=== PATIENT | female | born 1995 | race Caucasian/White ===

== ENCOUNTER 2021-04-08 09:59 | Outpatient (CLI) | payer OTHER, SELFPAY ==
--- NOTE | ~2021-04-08 | US_ITS ---
EXAMINATION: US OB follow up DATE: 04/08/2021 11:01 INDICATION: viability assessment, second trimester TECHNIQUE: Real-time ultrasound of the pelvis was performed. The interpreting radiologist was not pre sent for the study. COMPARISON: None. FINDINGS: There is a single living fetus in transverse lie. The placenta is anterior and 6.8 cm from the internal cervical os. cardiac activity and movement are noted. heart rate is 13 6 beats per minute (bpm). The following biometric data were obtained: Biparietal diameter (BPD): 3.1 cm; head circumference (HC): 11.1 cm; abdominal circumference (AC): 8. 9 cm; femur length (FL): 1.5 cm. These measurements are concordant. Estimated weight is 109 g +/- 16 g, which correlates with the 39th percentile when 10/01/2021 is used as estimated date of delivery. As single measurements, these parameters are each equal to the following estimated gestational ages w ith ranges of +/- 2 standard deviations: BPD: 15 weeks 6 days +/- 1 weeks 1 days. HC: 15 weeks 3 days +/- 1 weeks 1 days. AC: 15 weeks 1 days +/- 1 weeks 5 days. FL: 14 weeks 3 days +/- 1 weeks 3 days. estimated gestational age based solely on measurements from this exam is 15 weeks 2 days +/- 1 weeks 0 days. IMPRESSION: 1. Single living fetus in transverse lie. 2. Estimated weight is 109 g +/- 16 g, which correlates with the 39th percentile when 10/01/2021 is used as estimated date of delivery. Reviewed, dictated and finalized at location B. IMPRESSION: 1. Single living fetus in transverse lie. 2. Estimated weight is 109 g +/- 16 g, which correlates with the 39th per centile when 10/01/2021 is used as estimated date of delivery.
== END 2021-04-08 10:00 | disposition home or self-care (01) ==
PROVIDERS: Visit Provider Student in an Organized Health Care Education/Training Program
DX: O36.80X0 Pregnancy with inconclusive fetal viability, not applicable or unspecified (principal)
CPT/HCPCS: 76816

== ENCOUNTER 2021-09-24 12:52 | Outpatient (CLI) | payer OTHER, SELFPAY ==
[2021-09-24 13:12] LABS: Hematocrit 37.6 % (37.0-47.0); Hemoglobin 12.3 g/dL (12.0-15.0); Mean Corpuscular HGB Conc 32.7 g/dl (32-36); Mean Corpuscular Hemoglobin 28.1 pg (26-34); Mean Platelet Volume 10.3 fl (7.4-10.4); Platelet Count Result 204 k/mm3 (150-375); Red Blood Count 4.37 M/mm3 (4.2-5.4); Red Cell Distribution Width 13.3 % (11.5-14.5); White Blood Count 9.7 K/mm3 (4.5-10.0)
[2021-09-26 09:00] LABS: Rapid Plasma Reagin Non-Reactive (NonReactive)
== END 2021-09-24 12:53 | disposition home or self-care (01) ==
LOC: ANHLAB 12:55
PROVIDERS: Visit Provider Student in an Organized Health Care Education/Training Program
DX: Z34.93 Encounter for supervision of normal pregnancy, unspecified, third trimester (principal); Z3A.00 Weeks of gestation of pregnancy not specified
CPT/HCPCS: 36415; 85027; 86592; 86850; 86900; 86901

== ENCOUNTER 2021-09-26 11:25 | Inpatient (IN) | payer OTHER, SELFPAY ==
--- NOTE | 2021-09-10 15:57 | PC.NURSE ---
Patient states she is a prev C/S--States she is planning to --consent signed. Patient states baby is breech at this time and has been breech for 2 weeks. Patient states she has an appointment on 09/16/21 to see if baby is still breech
[2021-09-26] VITALS (200 sets, daily range): BP systolic 87–136; BP diastolic 27–80; PULSE 59–154; RESP 16–18; TEMP 36.2–36.4; O2SAT 96–100; BMI 34.1
--- NOTE | 2021-09-26 11:25 | LDADM ---
This patient, Charmaine Peralta, was admitted to Labor/Delivery/Recovery 120 on 09/26/21 at 11:25. Plans for labor, pain management and were discussed with patient. Patient/family oriented to hospital policies and general routines including ID bracelet, bed and alarms, visiting hours, pain management, procedures, bathroom and other care routines, personal items, smoking policy, room service/diet and guest tray routines, infant security routines, and visiting hours. Patient/Family are encouraged to report perceived risks to care and to ask questions if they do not understand what they are told or what they should do. See OBIX for further documentation.
[2021-09-26] MEDS: LACTATED RINGERS 1,000 ML 125 ML IV CONT ×4 (12:12→17:47)
--- NOTE | 2021-09-26 12:51 | PM.IMHP ---
H&P: HPI History of Present Illness Date/Time: 09/26/21 12:51 Patient is a 26yo LMP 12/25/20 currently 39w2d gestation with FROILAN 10/01/21 who presents to L&D for an external cephalic version. Patient is dated by LMP consistent with US on 04/08/21 at 15w gestation. Patient doing well today. Reports occasional contractions. Denies any vaginal bleeding or leakage of fluid. Reports good movement. Patient was previously counseled about ECV vs. repeat section. She initially declined ECV and was scheduled for a repeat section, however, last week, she requested an attempt at ECV prior to section. Chief Complaint: Intrauterine at 39w2d gestation Previous section x 1 Breech presentation Review of Systems Review of Systems: All systems reviewed & are unremarkable except as noted in HPI and below Constitutional: Constitutional: Reports as per HPI, Reports no additional constitutional complaints, Denies chills, Denies fever(s), Denies headache(s) and Denies night sweats Eyes: Eyes: Reports as per HPI and Reports no additional eye complaints ENT: Reports system reviewed and no additional complaints, except as documented, Reports as per HPI, Reports Normal hearing present and Denies headache(s) Cardiovascular: Cardiovascular: Reports as per HPI, Reports no additional cardiovascular complaints, Denies chest pain and Denies dyspnea Respiratory: Respiratory: Reports as per HPI, Reports no additional respiratory complaints, Denies cough and Denies dyspnea Gastrointestinal: Gastrointestinal: Reports as per HPI, Reports no additional gastrointestinal complaints, Denies abdominal pain, Denies change in bowel habits, Denies change in stool character, Denies nausea and Denies vomiting Genitourinary: Genitourinary: Reports no additional female genitourinary complaints, Reports as per HPI, Denies abnormal vaginal bleeding, Denies genital lesions, Denies hot flashes, Denies dyspareunia, Denies pelvic pain, Denies sexual dysfunction, Denies urinary incontinence, Denies vaginal discharge, Denies vaginal dryness and Denies vaginal odor Musculoskeletal: Musculoskeletal: Reports no additional musculoskeletal complaints and Reports as per HPI Integumentary/Breasts: Skin/Breast: Reports system reviewed and no additional complaints, except as docu, Reports as per HPI, Denies breast pain and Denies nipple discharge Neurologic: Reports system reviewed and no additional complaints, except as documented, Reports as per HPI, Reports Normal hearing present and Denies headache(s) Psychiatric: Psychiatric: Reports no additional psychiatric complaints, Reports as per HPI, Denies anxiety and Denies depression Endocrine: Endocrine: Reports no additional endocrine complaints and Reports as per HPI Hematologic/Lymphatic: Hematologic/Lymphatic: Reports no additional hematologic/lymphatic complaints and Reports as per HPI Allergic/Immunologic: Allergic/Immunologic: Reports no additional allergic/immunologic complaints and Reports as per HPI PMFSH Past Medical History Medical History History of 2017 Surgical History Surgical History History of section 2019 [place] teeth removed Family History Family History Father Malignant neoplasm of prostate Colon cancer Grandparent Hypertension Social History Social History Smoking status: Never smoker Alcohol intake: never Substance use: never Spiritual care concerns: No Meds Home Medications and Allergies Home Medications Medication Instructions Recorded Confirmed Type prenat.vits,milton,itp-uxze-jfimj 1 tablet PO DAILY 03/22/21 09/26/21 History Allergies Allergy/AdvReac Type Severity Reaction Status Date / Time No Known Allergies
[2021-09-26] MEDS: TERBUTALINE SULFATE 1 MG/ML VIAL 0.25 MG SUB-Q (12:56)
--- NOTE | 2021-09-26 13:04 | P.PNAN_ITS ---
Anes - Initial Pre Proc Eval Procedure: Operation Date: 09/26/21 13:30 Proposed Procedures p Repeat Section - Robyn Mohamud MD Date/Time: 09/26/21 13:04 Surgeon: Robyn Mohamud MD Pre Op Diagnosis: Delivery of Patient Data Age: 26 Gender: F Height: 1.68 m Weight: 96 kg Last Vital Signs Pulse 99 09/26/21 13:04 BP 112/74 09/26/21 13:04 Pulse Ox 99 09/26/21 13:01 Allergies Allergy/AdvReac Type Severity Reaction Status Date / Time No Known Allergies Allergy Verified 09/22/21 10:21 Home Medications Medication Instructions Recorded Confirmed Type prenat.vits,milton,fqz-ivif-bjjdx 1 tablet PO DAILY 03/22/21 09/26/21 History Patient hx anesthesia problems: none Family hx anesthesia problems: none Results Review: All pre-operative results and documents have been reviewed as part of the pre-operative evaluation. FORMERLY [facility], [facility] Past Medical History Medical History History of 2017 Surgical History Surgical History History of section 2019 [place] teeth removed Family History Family History Father Malignant neoplasm of prostate Colon cancer Grandparent Hypertension Social History Social History Smoking status: Never smoker Alcohol intake: never Substance use: never Spiritual care concerns: No Anes - Eval Final PreProcedure Day of Procedure 09/26/21 13:04 Patient weight: obese Heart: regular rate and rhythm Lungs: clear to auscultation and normal air movement Airway: Mallampati scale class II Neurological: alert and oriented Last oral intake: >/= 8 hours ASA classification: II Emergent: no Anesthetic plan: proceed Anesthesia type and monitoring: regional epidural and standard monitoring Other findings: Attempt external version, possible C/S to follow if version fails. Results Review: All pre-operative results and documents have been reviewed as part of the pre-operative evaluation. Informed Consent: The patient's anesthetic plan and its attendant risks and benefits were discussed with the patient/family/POA. Questions were solicited and answers provided to the satisfaction of the patient/family/POA.
[2021-09-26] MEDS: ONDANSETRON INJ 4 MG/2 ML VIAL IV PUSH (13:08)
--- NOTE | 2021-09-26 13:16 | WPDHPUPDATE1 ---
History and Physical Update Update Date/Time: 09/26/21 13:16 History and Physical has been reviewed, including an updated exam of the patient. There are NO changes in the patient's condition. Risks, benefits, and alternatives have been discussed and questions answered. Patient agrees to proceed with procedure.
--- NOTE | 2021-09-26 13:44 | PM.OP ---
Procedure Note - Brief Procedure Note - Brief Date of procedure: 09/26/21 Pre-op diagnosis: Delivery of Intrauterine at 39w2d gestation Breech presentation Previous C/S x 1 Post-op diagnosis: Same Procedure performed: External cephalic version Description of procedure: 26yo currently 39w2d gestation presented for attempted external cephalic version. FHR tracing reactive prior to procedure. Limited bedside U/S performed confirming right sacrolateral breech presentation. IV access established. An epidural was placed by anesthesia. Terbutaline x 1 dose administered. External cephalic version performed with steady pressure keeping head flexed in a backwards roll under ultrasound guidance. Fetus successfully rotated into cephalic presentation. Anesthesia: epidural Surgeon: Robyn Mohamud MD Estimated blood loss (mL): 0 Urine output (mL): 0 Drains: No Packing: No Complications: No immediate complications Condition: Stable Disposition: Floor
--- NOTE | 2021-09-26 13:48 | P.PNOB_ITS ---
OB - PN: Subj Subjective Date/time seen: 09/26/21 13:48 Able to successfully reposition fetus into cephalic presentation. Plan is to admit patient for induction of labor. She will be transferred to a labor room. Will begin IOL with pitocin and perform AROM as soon as possible. Continuous EFM and toco. OB - PN A/P Time Spent With Patient Time: Total time spent is greater than 50% in coordination of care (as doc umented) at patient's floor/unit and/or counseling patient:
[2021-09-26] MEDS: ePHEDrine sulfate INJ 50 MG/ML AMPUL IV PUSH (13:54)
--- NOTE | 2021-09-26 14:03 | PC.NURSE ---
Orders received from Dr. Mohamud for pitocin orders. Labor orders received. Call Dr. Mohamud when pt is rupturable.
[2021-09-26] MEDS: OXYTOCIN 30 UNITS/NS 500 ML 30 UNITS/500 ML BAG IV CONT (14:48)
[2021-09-27] VITALS (367 sets, daily range): BP systolic 93–137; BP diastolic 45–98; PULSE 51–121; RESP 16–18; TEMP 36.2–37.1; O2SAT 93–100
--- NOTE | 2021-09-27 06:18 | PM.OBPNLAB ---
Pain Control Date/time seen: 09/27/21 06:18 Patient doing well. s/p 12 hr course of pitocin. SVE 1.5/thick/high. Pitocin d/c'd. Patient rested for a few hours. SVE unchanged. [place] bulb catheter placed and inflated with 40cc saline. Placed on traction. Will restart pitocin. Continuous EFM and toco.
[2021-09-27] MEDS: LACTATED RINGERS 1,000 ML 125 ML IV CONT ×2 (06:24→19:40)
[2021-09-27] MEDS: fentaNYL CITRATE INJ (*CRX) 100 MCG/2 ML VIAL 50 MCG IV PUSH ×2 (08:07→09:27)
--- NOTE | 2021-09-27 12:17 | PM.OBPNLAB ---
Pain Control Date/time seen: 09/27/21 12:17 Patient doing well. [place] bulb dislodged. SVE 4-5/50/-2. AROM performed, clear fluid noted. IUPC placed. EFM 150/mod/+/occ late (recovered). [place] shows contractions q2-3 mins. Continue pitocin and continuous EFM and toco.
[2021-09-27] MEDS: ONDANSETRON INJ 4 MG/2 ML VIAL IV PUSH (12:18)
--- NOTE | 2021-09-27 21:35 | PM.OBPNLAB ---
Pain Control Date/time seen: 09/27/21 21:35 Notified by RN of decelerations on EFM. Throughout afternoon and evening, pitocin has been stopped and restarted due to variable and late decelerations. Amnioinfusion attempted. Patient repositioned. IV fluid bolus and O2 administered. Adequate recovery. However, despite multiple attempts to increase pitocin afterwards to achieve adequate MVUs, persistent decelerations noted. SVE has been 5cm dilated for several hours. Situation discussed with patient. Discussed inability to titrate pitocin without decelerations. Recommendation made to proceed with section for nonreassuring heart tracing. Patient implied an understanding and agrees with plan. All questions and concerns addressed. Anesthesia and OR staff aware.
[2021-09-27] MEDS: ceFAZolin 2 GM/D5W 50 ML 2 GM/50 ML BAG IVPB (21:43)
--- NOTE | 2021-09-27 23:12 | W.PM.PROC2 ---
Procedure Note - Detailed Date of Procedure 09/27/21 Pre-op Diagnosis Intrauterine at 39w3d gestation Previous section x 1 Trial of labor after Nonreassuring heart tracing Post-op Diagnosis Same Procedure Performed Repeat low transverse section via Pfannenstiel Vacuum assisted delivery of head Surgeon Robyn Mohamud MD [employer]electric [employer] Operator Belén Vera Anesthesia Epidural Findings Live male in cephalic presentation, apgars 6/9, weighing 8 lbs. 2 oz, clear amniotic fluid, normal appearing uterus, ovaries, and fallopian tubes bilaterally Description of Procedure The patient was taken to the operating room, where she was transferred to the operating room table. The patient was placed in dorsal supine position with a leftward tilt. She was prepped and draped in the usual sterile fashion. Epidural anesthesia was tested and found to be adequate. A Pfannenstiel skin incision was made with a scalpel and carried through to underlying layer of fascia with the Bovie. The fascia was incised in the midline and the incision was extended laterally with the use of forceps and Almazan scissors. The inferior aspect of the fascial incision was grasped with Daryn clamps, elevated, and the underlying rectus muscle were dissected off with Almazan scissors. Attention was then turned to the superior aspect of the fascial incision, which in a similar manner, was grasped with Daryn clamps, elevated, and the underlying rectus muscles were also dissected off with Almazan scissors. The rectus muscles were in the midline and the peritoneal cavity was entered bluntly. This incision was extended superiorly and inferiorly with good visualization of the bladder and care was taken to avoid blood vessels. A bladder blade was inserted. The vesicouterine peritoneum was identified and incised sharply with Metzenbaum scissors. This incision was extended laterally with Metzenbaum scissors and a bladder flap was created digitally. The bladder blade was replaced. A low-transverse uterine incision was made with a scalpel. This incision was extended laterally with bandage scissors. Amniotomy was performed. Clear amniotic fluid was noted. The 's head was grasped and gently guided to the level of the uterine incision. An attempt to deliver the 's head was made, however, was unable to deliver through incision. The peritoneum and fascial incision were extended on the right side and another attempt to deliver head was made, however, unsuccessful. Similarly, the peritoneum and fascial incision on the left side was also extended to increase space. head still unable to be delivered. A kiwi vacuum was opened on the field and applied to head. The pressure of vacuum was increased to green level and effort was made to deliver head with fundal pressure. Pop off occurred. A second application of vacuum was performed and a second pop off occurred. Both the left and right rectus muscles were transected approx. 1 cm each to further increase space. Afterwards, the head was grasped again and delivered without difficulty followed by the neck, shoulders, and rest of body with gentle fundal pressure. A nuchal cord x 1 was noted and reduced. The infant's nose and mouth were suctioned bulb suction. The was feebly crying. The cord was clamped and cut and the infant was handed off to waiting nursing staff. A segment of cord was collected for cord gases. Cord blood was also collected. The placenta was then delivered manually with gentle uterine massage. Uterus was exteriorized and cleared of all clots and debris. The uterine incision was reapproximated with 0 Vicryl in a running, locked fashion. A second imbricating layer using 0 Monocryl performed. An area of bleeding was noted in the midline of the incision. A few figure of eight sutures with 0 Monocryl were placed. Excellent hemostasis was noted. On inspection, the uterus, ovaries, and fallopian tubes appeared to be
--- NOTE | 2021-09-27 23:34 | PM.OBPRVD ---
OB - Delivery Note Procedure Delivery date: 09/27/21 Procedure: Procedures Operation Date: 09/26/21 13:30 <No data on this case meets the specified criteria> Operation Date: 09/27/21 22:00 <No data on this case meets the specified criteria> Events: Elective Induction of Labor and Previous Delivery Intrapartal Events: Non-Reassuring Status Induction method: Per Pitocin Protocol Delivery augmentation: Rupture of Membranes Delivery monitor: External FHT, External Uterine and Internal FHT Route of delivery: (with vacuum delivery of head) Prior to decision for section, ACOG/SMFM labor guidelines were considered and discussed with the patient and staff. Decision made to proceed with the section.: Yes Quantitative Blood Loss (ml): 660 Anesthesia type: Epidural Disposition: PACU Complications: No immediate complications Baby Date of : 09/27/21 Time of : 22:11 Weeks of gestation at delivery: 39 (39.3) Infant gender: Male Weight (pounds): 8 Weight (ounces): 2 presentation: vertex position: Right Occiput Anterior (however, asynclitic) Placenta delivery description: Manual Removal Cord Vessel Description: 3 Vessels and Nuchal Cord (x1) score one minute: 6 score five minutes: 9 AMG Delivery Billing Delivery Delivery: Delivery Charge
[2021-09-28] VITALS (31 sets, daily range): BP systolic 108–129; BP diastolic 49–85; PULSE 52–76; RESP 16–18; TEMP 36.2–36.7; O2SAT 94–100
[2021-09-28] MEDS: OXYTOCIN 30 UNITS/NS 500 ML 30 UNITS/500 ML BAG 125 UNITS IV CONT (00:22)
[2021-09-28] MEDS: DEXTROSE 5%/0.45% SOD CHL 1,000 ML 125 ML IV CONT (04:36)
[2021-09-28 04:47] LABS: Basophils Percent Auto 0.3 % (0.2-1.2); Hematocrit 31.7 % (37.0-47.0); Hemoglobin 10.4 g/dL (12.0-15.0); Immature Granulocyte Absolute 0.03 K/mm3 (0.00-0.031); Immature Granulocyte Percent A 0.3 % (0-0.5); Lymphocytes Absolute Auto 1.43 K/mm3 (0.9-3.2); Lymphocytes Percent Auto 13.5 % (18.3-44.2); Mean Corpuscular HGB Conc 32.8 g/dl (32-36); Mean Corpuscular Hemoglobin 28.8 pg (26-34); Mean Corpuscular Volume 87.8 fl (80-100); Mean Platelet Volume 10.4 fl (7.4-10.4); Monocytes Absolute Auto 0.7 K/mm3 (0.1-0.6); Monocytes Percent Auto 6.1 % (2.6-8.5); Neutrophils Absolute Auto 8.5 K/mm3 (1.3-6.7); Neutrophils Percent Auto 79.8 % (45.5-73.1); Platelet Count Result 163 k/mm3 (150-375); Red Blood Count 3.61 M/mm3 (4.2-5.4); Red Cell Distribution Width 13.3 % (11.5-14.5); White Blood Count 10.6 K/mm3 (4.5-10.0)
[2021-09-28] MEDS: MULTIVIT/MIN/PREN/FOL AC/IRON TABLET 1 TAB PO (08:57)
[2021-09-28] MEDS: DOCUSATE SODIUM 100 MG CAPSULE PO ×2 (08:57→16:09)
[2021-09-28] MEDS: ACETAMINOPHEN 325 MG TABLET 650 MG PO (08:58)
--- NOTE | 2021-09-28 09:14 | P.PNOB_ITS ---
OB - PN: Subj Subjective Date/time seen: 09/28/21 09:14 Patient doing well. Pain reasonably controlled with medication. Denies any headache, chest pain, SOB, N/V. Scant lochia. No ambulation yet. [place] in place. No flatus. OB - PN: Obj Data Labs CBC & Chem 7: 09/28/21 04:18 Labs: Laboratory Results - last 24 hr 09/28/21 04:18 WBC 10.6 H RBC 3.61 L Hgb 10.4 L Hct 31.7 L MCV 87.8 MCH 28.8 MCHC 32.8 RDW 13.3 Plt Count 163 MPV 10.4 Immature Gran % (Auto) 0.3 Neut % (Auto) 79.8 H Lymph % (Auto) 13.5 L [place] % (Auto) 6.1 Eos % (Auto) 0.0 Baso % (Auto) 0.3 Lymph # (Auto) 1.43 [place] # (Auto) 0.7 H Eos # (Auto) 0.0 Baso # (Auto) 0.0 Abs Immat Gran (auto) 0.03 Absolute Neuts (auto) 8.5 H Absolute Nucleated RBC 0.0 Nucleated RBC % 0.0 OB - PN A/P Assessment and Plan (1) Delivery by section of full-term infant: Code(s): O82 - Encounter for delivery without indication Status: Acute Assessment and Plan: POD#1 doing well continue routine postoperative care pain management PRN encourage ambulation and use of IS Time Spent With Patient Time: Total time spent is greater than 50% in coordination of care (as documented) at patient's floor/unit and/or counseling patient: Exam Const: General: cooperative, healthy appearing, comfortable and no acute distress GI: Inspection: non-distended GI Palp: Yes Soft to palpation and Yes Tenderness to palpation present (GI) (appropriately tender) Other: inc cover ed with bandage, which is c/d/i Extrem: Right lower extremity: no edema Left lower extremity: no edema
--- NOTE | 2021-09-28 10:52 | PC.NURSE ---
30 [phone] [id number] Introductions were made, then consulted with patient to assess needs related to . Mother led the conversation with her experience feeding her infant so far and states she breastfed well for 10 min with no pain. Mother works well with her infant. Encouraged understanding of the benefits of skin to skin (unwrapping and placing vertically on her chest), responsive feeding and how to watch for early feeding signs, frequency of feeding on demand about every 8-12 times in 24 hours (every 2-3 hours), milk production, duration of feeding, signs of adequate intake/output and how to record on the feeding sheet. Reviewed positioning and ear, shoulder, hip alignment, supporting the breast, asymmetrical latch (off-center), and leading with the chin with a big open side gape. Nipple care reviewed with optimal latch and good positioning. Mother mentions baby may have latched shallow with the last feeding. Mother is encouraged to pump if she is unable to have a successful breastfeed and she has pumped a great amount of colostrum and stored it in the refrigerator. Resources used to facilitate learning were used with the visual handouts/mom and baby guide. Mother voiced understanding of responsive feedings, stimulating with skin to skin, hand expressed colostrum, touch, talking to to encourage if it has been 2 -3 hours since the start of the last , to call if does not latch or there is discomfort with . Reported to the primary RN.
--- NOTE | 2021-09-28 10:54 | WPDANLDPN2 ---
Anes-Prog Note L&D Date/Time: 09/28/21 10:54 Comfortable throughout: labor and section Neuraxial method: epidural Epidural/Spinal procedure site: clean & non-tender Neuro status: Neuro function grossly intact. Cardiovascular status: normal Respiratory status: normal Airway patency: baseline Mental status: baseline Post-Op hydration status: normal Vital Signs: Last Vital Signs Temp 98.1 F 09/28/21 08:45 Pulse 68 09/28/21 08:45 Resp 16 09/28/21 08:45 BP 118/64 09/28/21 08:45 Pulse Ox 97 09/28/21 08:45 Pain score (VAS): 0/10 I/O: Intake & Output 09/27/21 09/28/21 09/28/21 23:59 07:59 15:59 Intake Total 1450 500 600 Output Total 524 288 4234 Balance 640 125 -400 Post-procedural complaints: none Patient feedback: Patient satisfied with anesthetic care.
--- NOTE | 2021-09-28 10:55 | WPDANLDNPN2 ---
Anes-Prog Note L&D-Neuraxial Date/Time: 09/28/21 10:55 Neuraxial medications: epidural PF morphine Opiod-related complaints: none Patient feedback: Patient satisfied with post-operative pain management.
[2021-09-28] MEDS: HYDROcodone/acetaminophen (*CRX) 5-325 MG TABLET 1 TAB PO ×3 (12:01→19:52)
[2021-09-28] MEDS: IBUPROFEN 600 MG TABLET PO ×2 (12:02→19:52)
[2021-09-29] MEDS: IBUPROFEN 600 MG TABLET PO ×2 (03:17→08:58)
[2021-09-29] MEDS: SIMETHICONE 80 MG TAB.CHEW PO ×2 (03:18→08:58)
[2021-09-29] MEDS: HYDROcodone/acetaminophen (*CRX) 5-325 MG TABLET 1 TAB PO ×3 (03:18→13:21)
[2021-09-29 07:30] VITALS: BP 114/68; PULSE 66; RESP 18; TEMP 36.6; O2SAT 100
[2021-09-29] MEDS: DOCUSATE SODIUM 100 MG CAPSULE PO (08:57)
[2021-09-29] MEDS: MULTIVIT/MIN/PREN/FOL AC/IRON TABLET 1 TAB PO (08:58)
--- NOTE | 2021-09-29 09:49 | P.PNOB_ITS ---
OB - PN: Subj Subjective Date/time seen: 09/29/21 09:49 Patient doing well. Pain reasonably controlled with medication. Denies headache, chest pain, shortness of breath, nausea, or vomiting. Tolerating p.o. diet. Ambulating without difficulty. Voiding well. Passing flatus. Minimal lochia. OB - PN: Obj Data Labs CBC & Chem 7: 09/28/21 04:18 OB - PN A/P Assessment and Plan (1) Delivery by section of full-term : Code(s): O82 - Encounter for delivery without indication Status: Acute Assessment and Plan: POD#2 doing well continue routine postoperative care encourage ambulation and use of IS pt requesting dc home today emergency precautions reviewed f/u in office in 2 weeks for postoperative visit Time Spent With Patient Time: Total time spent is greater than 50% in coordination of care (as docum ented) at patient's floor/unit and/or counseling patient: Exam Const: General: cooperative, healthy appearing, comfortable and no acute distress GI: Inspection: non-distended GI Palp: Yes Soft to palpation and Yes Tenderness to palpation present (GI) (appropriately) Other: inc c/d/i Extrem: Right lower extremity: no edema Left lower extremity: no edema Other: no calf tenderness Psych: Appearance: grossly normal Mental Status: mental status grossly normal
--- NOTE | 2021-09-29 09:53 | P.DS_ITS ---
DS: Admitting Diagnosis Discharge Date 09/29/21 Admitting Diagnosis Intrauterine at 39w2d gestation Previous section x 1 Breech presentation OB - DS: Summary OB Procedures : External version OB Procedures Intrapartum: OB Procedures: : None Peripartum Data Procedures: Procedures Operation Date: 09/26/21 13:30 <No data on this case meets the specified criteria> Operation Date: 09/27/21 22:00 Actual Procedure Side Surgeon p Section Robyn Mohamud MD Time Spent with Patient Time attestation: Total time spent providing and/or coordinating discharge services: Discharge Plan Discharge Attending physician on discharge: Robyn Mohamud Discharging Clinician: Robyn Mohamud Anticipated Discharge Date/Time: 09/29/21 09:53 Patient Disposition: Home, Self-Care Activity: as tolerated and pelvic rest Diet: regular Discharge Instructions: Call office ([phone]) to schedule the following appointments: 1. Postoperative/wound check in 2 weeks. 2. visit in 4-6 weeks. You may take Ibuprofen 600mg every 6 hours as needed for pain. I have sent a prescription for a stronger pain medication, [place], to your pharmacy. You may take this as prescribed for breakthrough pain (pain that is not controlled with Ibuprofen). No driving for at least two weeks. You also may not drive while taking narc otics. Pain medication may make you constipated. It may be helpful to take an uoji-bxv-ameryye stool softener, such as Colace and/or Senokot, along with the pain medication to help lessen constipation. Call office or go to ED for pain not controlled with medication, headache, chest pain, shortness of breath, fever, chills, persistent nausea or vomiting, severe abdominal pain, heavy vaginal bleeding >2 pads/hour, foul vaginal discharge or odor, any redness near incision, severe pain, pus or drainage from incision site, or problems with your breasts. Patient Instructions: Antibiotic Form Stand Alone Forms: General Discharge Information Follow-up/Referrals: Robyn Mohamud MD [Physician] - Discharge Medications: New hydrocodone-acetaminophen 5-325 mg Tablet 1 - 2 tablet PO Q4-6H PRN (Reason: Moderate Pain (4-6)) Qty: 30 RF: 0 Continued prenat.vits,milton,khi-xsfu-xlyzl Tablet 1 tablet PO DAILY RF: 0 Date of admission: 09/26/21 11:25 Primary Care Provider: PHYSICIAN NOT ON STAFF,NONSTAFF Admitting Provider: Robyn Mohamud Attending physician on admission: Robyn Mohamud Condition: Stable
[2021-09-30 09:50] VITALS: BP 122/72; PULSE 67; RESP 16; TEMP 37; O2SAT 100
== END 2021-09-29 13:25 | disposition home or self-care (01) | DRG 788 ==
LOC: ANHLDR 09-27 23:21 → ANHOB2 09-28 01:43
PROVIDERS: Admitting Provider Student in an Organized Health Care Education/Training Program; Visit Provider Student in an Organized Health Care Education/Training Program
PROC: 3E0E77Z Introduction of Electrolytic and Water Balance Substance into Products of Conception, Via Natural or Artificial Opening (ICD-10-PCS; CPT 59514; principal; 2021-09-27 22:00)
DX: O32.1XX0 Maternal care for breech presentation, not applicable or unspecified (principal); Z37.0 Single live birth; Z3A.39 39 weeks gestation of pregnancy; O34.211 Maternal care for low transverse scar from previous cesarean delivery; O36.8330 Maternal care for abnormalities of the fetal heart rate or rhythm, third trimester, not applicable or unspecified; O69.81X0 Labor and delivery complicated by cord around neck, without compression, not applicable or unspecified
CPT/HCPCS: 36415; 85025; 85027; 86592; 86850; 86900; 86901; A9270; J0131; J0690; J2274; J2370; J2405; J2590; J2704; J3010; J3105; J7120

== ENCOUNTER 2023-05-16 10:27 | Emergency (ER) | payer OTHER, SELFPAY ==
--- NOTE | ~2023-05-16 | XR_ITS ---
EXAMINATION:XR_[id number] DATE: 05/16/2023 12:13 INDICATION: Neck pain TECHNIQUE: AP, lateral, and odontoid views of the cervical spine are provided. COMPARISON: None FINDINGS: There is reversal of the normal cervical lordosis. Alignment is normal. The odontoid proces s is intact. No fracture is identified. Vertebral body heights and disk spaces are normal. Prevertebr al soft tissues are normal. IMPRESSION: 1. No acute osseous abnormality. Reviewed, dictated and finalized at location B. UCTION UNDERWRITER
[2023-05-16 10:32] VITALS: BP 117/74; PULSE 64; RESP 18; TEMP 36.2; O2SAT 100
--- NOTE | 2023-05-16 11:34 | ED.NECK ---
HPI - Neck Pain/Injury General Chief Complaint: Neck Pain/Injury Stated Complaint: NECK STRAINED Time Seen by Provider: 05/16/23 10:49 Source: patient Mode of arrival: ambulatory Limitations: no limitations History of Present Illness HPI Narrative: This is a 27-year-old female that presents to the emergency department for left-sided neck pain. Ongoing since yesterday. Reports she was doing a backward roll and felt like she strained her neck. Pain is worse with movement and relieved with rest. She has not taken any pain medication yet today. Denies numbness or weakness. Related Data Home Medications Medication Instructions Recorded Confirmed prenat.vits,milton,mkc-zaun-wteis 1 tablet PO DAILY 03/22/21 09/26/21 Allergies Allergy/AdvReac Type Severity Reaction Status Date / Time No Known Allergies Allergy Verified 05/16/23 10:46 Review of Systems Review of Systems: CONSTITUTIONAL: Denies fever, MUSCULOSKELETAL: Reports myalgia. NEUROLOGIC: Denies numbness, or weakness. All systems reviewed & are unremarkable except as noted in HPI and below PMFSH Past Medical History Medical History History of 2017 Surgical History Surgical History History of section 2019 [place] teeth removed Family History Family History Father Malignant neoplasm of prostate Colon cancer Grandparent Hypertension Social History Social History Smoking status: Never smoker Alcohol intake: never Substance use: never Spiritual care concerns: No Exam Narrative: GENERAL: Well-appearing, well-nourished, and in no acute distress. HEAD: Normocephalic, atraumatic. EYES: EOMI. NECK: Supple. No adenopathy or masses. Tender to palpation of the trapezius musculature on the left side CHEST: Clear to auscultation. No respiratory distress. No wheezes rales or rhonchi HEART: Regular rate and rhythm. No murmur heard. Normal peripheral pulses. EXTREMITIES: Normal range of motion. No edema. Strength equal in bilateral upper extremities (5/5) SKIN: Warm, dry, no rash. NEURO: No focal deficits. Alert and oriented x3. PSYCH: Normal mood and affect Course Course Emergency Course: patient updated on workup and agrees with plan of care Vital Signs Vital signs: Vital Signs Temperature 97.1 F L 05/16/23 10:32 Pulse Rate 64 05/16/23 10:32 Respiratory Rate 18 05/16/23 10:32 Blood Pressure 117/74 05/16/23 10:32 Pulse Oximetry 100 05/16/23 10:32 Temperature 97.1 F L 05/16/23 10:32 Pulse Rate 64 05/16/23 10:32 Respiratory Rate 18 05/16/23 10:32 Blood Pressure 117/74 05/16/23 10:32 Pulse Oximetry 100 05/16/23 10:32 MDM - Neck Pain/Injury MDM Narrative Medical decision making narrative: Patient presents to the emergency department for left-sided neck pain after an injury yesterday. Patient is neurologically intact. No midline spinal tenderness. Cervical spine x-rays without acute osseous abnormalities. Does show some evidence for muscle spasm. Patient instructed on further care muscle strain. She is to follow up with her primary provider. She was given warnings to return to the ER Differential Diagnosis Differential diagnosis: Likely disc disorder of cervical region, whiplash injury to neck, cervical radiculopathy and strain of neck muscle Imaging Data Radiologist's impression: ITS Impressions Cervical Spine X-Ray 05/16/23 12:17 IMPRESSION: 1. No acute osseous abnormality. Critical Care Time Critical Care Time Critical Care Time: No Discharge Plan Discharge Clinical Impression: Neck pain Patient Disposition: Home, Self-Care Condition: Improved Instructions: Cervical Strain (ED) Additional Instru
[2023-05-16] MEDS: ACETAMINOPHEN 500 MG TABLET 1000 MG PO (11:57)
[2023-05-16] MEDS: diazePAM INJ (*CRX) 10 MG/2 ML SYRINGE 5 MG IM (11:57)
[2023-05-16] MEDS: predniSONE 20 MG TABLET 40 MG PO (11:57)
[2023-05-16 13:10] VITALS: BP 116/74; PULSE 68; RESP 15; O2SAT 100
== END 2023-05-16 13:11 | disposition home or self-care (01) ==
PROVIDERS: Emergency Provider Physician Assistant
DX: M54.2 Cervicalgia (principal)
CPT/HCPCS: 72040; 96372; 99283; A9270; J3360; J7512

== ENCOUNTER 2024-06-02 10:55 | Emergency (ER) | payer OTHER, SELFPAY ==
--- NOTE | ~2024-06-02 | XR_ITS ---
CHEST RADIOGRAPH, PA AND LATERAL CLINICAL HISTORY: cough x1+wks. SOB w exertion . COMPARISON: None available TECHNIQUE: PA and lateral views of the chest. FINDINGS The cardiomediastinal silhouette is unremarkable. The lungs are clear. Visualized osseous structures and soft tissues are unremarkable. IMPRESSION: No focal infiltrate or effusion. Reviewed, dictated and finalized at location A. S PROFESSIONAL
[2024-06-02 11:21] VITALS: BP 105/64; PULSE 59; RESP 16; TEMP 36.6; O2SAT 100
--- NOTE | 2024-06-02 11:51 | ED.URI ---
HPI - URI/Sore Throat General Chief Complaint: Upper Respiratory Infection Stated Complaint: Chest Congestion Time Seen by Provider: 06/02/24 11:46 Source: patient and RN notes reviewed Mode of arrival: ambulatory Limitations: no limitations History of Present Illness HPI Narrative: Patient presents today complaining of a 1+ week history of productive cough that is worse at night, fatigue, headache, shortness of breath with exertion. Denies nasal congestion, fever, sore throat. She has tried some thoi-hfe-lassurm medication at home without relief. History of exercise-induced asthma many years ago, but is not currently taking any control medication. She is a nonsmoker. Related Data Allergies Allergy/AdvReac Type Severity Reaction Status Date / Time No Known Allergies Allergy Verified 06/02/24 11:18 Review of Systems Review of Systems: CONSTITUTIONAL: Denies body aches, fever, chills, or sweats.+ fatigue EYES: Denies visual changes, redness, or discharge. ENT: Denies rhinorrhea, congestion, sore throat, or otalgia. CARDIOVASCULAR: Denies chest pain, palpitations, or edema. RESPIRATORY: + cough, shortness of breath with exertion GASTROINTESTINAL: Denies abdominal pain, nausea, vomiting, or diarrhea. GENITOURINARY: Denies dysuria or hematuria. SKIN: Denies rash, itching, or wounds. MUSCULOSKELETAL: Denies back pain, joint pain, or myalgia. NEUROLOGIC: Denies numbness, tingling, or weakness.+ headache PSYCH: Denies depression or anxiety. [facility] Past Medical History Medical History History of 2017 Surgical History Surgical History [place] teeth removed History of section 2019 Family History Family History Father Malignant neoplasm of prostate Colon cancer Grandparent Hypertension Social History Social History Smoking status: Never smoker Alcohol intake: never Substance use: never Spiritual care concerns: No Comments At time of signature, I have reviewed and agree with nursing past medical, surgical, social and family history unless otherwise noted. Please see nursing chart for further information. There is no relevant family history pertinent to the presenting complaint Exam Narrative: GENERAL: Mildly ill-appearing, well-nourished, and in no acute distress. HEAD: Normocephalic, atraumatic. EYES: EOMI. No redness or drainage. Conjunctivae normal. ENT: Mucous membranes pink and moist. Nares clear. No rhinorrhea. TMs normal bilaterally. Throat normal. Uvula midline. NECK: Normal AROM. Supple. No lymphadenopathy. CHEST: No respiratory distress. Mild Crackles in the right lower lobe, otherwise clear HEART: Regular rate and rhythm. No murmur appreciated. EXTREMITIES: Normal range of motion. No edema. SKIN: Warm, dry, no rash. Capillary refill normal. Normal skin turgor. NEURO: No focal deficits. Alert and oriented x3. Gait steady. PSYCH: Normal affect. No signs of depression or anxiety. Course Course Emergency Course: 1302- Patient was discharged home as I was notified by instrumentation and control technician that there was some malfunction with reading xrays. Patient has been waiting for the xray to be read for some time and there was not an ETA for this fix. I will call her later when it is read and discuss diagnosis and any prescriptions that are necessary. She agrees with plan. 1324- Patient has been notified of xray results. Diagnosis discussed. Questions answered. Prescriptions sent into her pharmacy. Level of Care: Express Care Visit Vital Signs Vital signs: Vital Signs Temperature 98 F 06/02/24 11:21 Pulse Rate 59 L 06/02/24 11:21 Respiratory Rate 16 06/02/24 11:21 Blood Pressure 105/64 06/02/24 11:21 Pulse Oximetry 100 06/02/24 11:21 Oxygen Delivery Room Air 06/02/24 11:21 Temperature 98 F 06/02/24 11:21 Pulse Rate 59 L 06/02/24 11:21 Respiratory Rate 16 06/02/24 11:21 Blood Pressure 105/64 06/02/24 11:21 Pulse Oximetry 100 06/02/24 11:21 Oxygen Delivery Room Air 06/02/24 11:31 Reviewed MDM - URI/Sore Throat MDM Narrative Medical decision making narrative: Chest x-ray negative. Prescription for prednisone and Cheritussin sent to pharmacy. Anticipatory guidance given. ED precautions given. Differential Diagnosis Differential diagnosis: Likely bronchitis and other (Pneumonia) Imaging Data Radiologist's impression: ITS Impressions Chest X-Ray 06/02/24 13:14 IMPRESSION: No focal infiltrate or effusion. Critical Care Time Critical Care Time Critical Care Time: No Discharge Plan Discharge Clinical Impression: Bronchitis Upper respiratory infection Qualifiers: URI type: unspecified URI Qualified Code(s): J06.9 - Acute upper respiratory infection, unspecified Patient Disposition: Home, Self-Care Condition: Stable Instructions: Antibiotic Form Additional Instructions: Your chest x-ray is negative today. Your symptoms are likely due to a viral illness, which is not treated with antibiotics. Virus symptoms can last for up to 7-10days. Take Tylenol or ibuprofen for pain or fever take the prednisone and Cheratussin as directed. Do not drive within 6 hours of taking the Cheratussin as it can make you drowsy. Rest and stay hydrated. Follow up with your PCP in 5 days if symptoms are not improving. Go to the ER immediately if you develop shortness of breath, difficulty swallowing, or any other concerning symptoms. Patient Language: Divehi Prescriptions: New prednisone 50 mg tablet 50 mg PO DAILY 5 Days Qty: 5 0RF codeine-guaifenesin 10-100 mg/5 mL liquid 5 ml PO Q6H PRN (Reason: cough) Qty: 120 0RF Follow-up/Referrals: PHYSICIAN,LOSS CLAIM CLERK [Primary Care Provider] - Time of Disposition: 13:02
== END 2024-06-02 13:03 | disposition home or self-care (01) ==
PROVIDERS: Emergency Provider Nurse Practitioner
DX: J40 Bronchitis, not specified as acute or chronic (principal); J06.9 Acute upper respiratory infection, unspecified
CPT/HCPCS: 71046; 99213; G0463

== ENCOUNTER 2025-05-12 09:26 | Emergency (ER) | payer OTHER, SELFPAY ==
--- NOTE | ~2025-05-12 | XR_ITS ---
EXAMINATION: XR hand LT min 3V DATE: 05/12/2025 09:54 INDICATION: Injury TECHNIQUE: Left hand x-rays were obtained. COMPARISON: None. FINDINGS: Minimally displaced fracture involving the base of the middle finger proximal phalanx along the ulnar margin at the MCP joint noted; the fragment appears slightly comminuted as well. The fracture extends into the joint space, though only a small portion of the articulating aspect of the proximal phalanx is involved. IMPRESSION: 1. Minimally displaced mildly comminuted intra-articular fracture involving the base of the middle finger proximal phalanx. Reviewed, dictated and finalized at location A. OF ART
--- NOTE | 2025-05-12 09:30 | ED.URI ---
HPI - URI/Sore Throat General Chief Complaint: Extremity Injury, Upper Stated Complaint: INJURED L HAND Time Seen by Provider: 05/12/25 09:38 Source: patient, RN notes reviewed and old records reviewed Mode of arrival: ambulatory Limitations: no limitations History of Present Illness HPI Narrative: 29-year-old female presents to the [facility] with left 3rd metatarsal pain, 3rd phalanges if pain, swelling and bruising. Patient states that she that she injured it on Sunday, 2 days ago. Had been icing it. Decreased range of motion of the 3rd finger. Capillary refill and sensation intact. No snuffbox tenderness. Swelling noted to the MCP with significant tenderness. Related Data Allergies Allergy/AdvReac Type Severity Reaction Status Date / Time No Known Allergies Allergy Verified 05/12/25 09:34 Review of Systems Review of Systems: All systems reviewed & are unremarkable except as noted in HPI and below Constitutional: Constitutional: Reports no additional constitutional complaints ENT: Reports system reviewed and no additional complaints, except as documented Musculoskeletal: Musculoskeletal: Reports as per HPI Integumentary/Breasts: Skin/Breast: Reports system reviewed and no additional complaints, except as docu PMFSH Past Medical History Medical History History of 2017 Surgical History Surgical History [place] teeth removed History of section 2019 Family History Family History Father Malignant neoplasm of prostate Colon cancer Grandparent Hypertension Social History Social History Smoking status: Never smoker Alcohol intake: never Substance use: never Spiritual care concerns: No Comments At the time of my signature, I reviewed and agree with the nursing past medical, surgical, social, and family history. There is no relevant family history pertinent to the patient complaint. Exam Const: General: cooperative, healthy appearing, comfortable, no acute distress, well developed, alert and well nourished Nutritional Appearance: well nourished Orientation/consciousness: patient oriented x3 Limitations: no limitations HENMT: Head: normal to inspection Eyes: General: appearance normal, both eyes and all related structures Alignment and Position: alignment normal Neck: Neck: normal visual inspection, full ROM, no lymphadenopathy and no meningeal signs Chest: Chest palpation & inspection: normal inspection of the chest Resp: Effort & Inspection: normal respiratory effort and able to speak in complete sentences Auscultation: clear to auscultation bilaterally, no crackles, no rales, no rhonchi and no wheezes Cardio: Rate: regular rate Skin: General skin exam: normal color and no rashes or lesions noted Neuro: General: patient oriented x3, gait normal, moves all extremities and no meningeal signs Cognition (Neuro): normal cognition Speech: normal speech Gait exam (Neuro): Normal gait present Extrem: General: normal to inspection, full ROM, capillary refill normal and normal gait Left upper extremity: hand normal capillary refill, tenderness of the 3rd digit at the MCP joint, vascular exam radial pulse present and normal capillary refill, swelling of the dorsal hand over the 3rd metacarpal and of the 3rd digit at the MCP joint and at the middle phalanx and ecchymosis of the dorsal hand and of the 3rd digit Psych: Appearance: grossly normal and well kempt Mental Status: mental status grossly normal Speech and movement: Normal speech and movement present and Clear speech present Affect: normal affect Attitude: cooperative Course Course Level of Care: Express Care Visit Vital Signs Vital signs: Vital Signs Temperature 97.5 F L 05/12/25 09:36 Pulse Rate 67 05/12/25 09:36 Respiratory Rate 16 05/12/25 09:36 Blood Pressure 114/74 05/12/25 09:36 Pulse Oximetry 100 05/12/25 09:36 Temperature 97.5 F L 05/12/25 09:36 Pulse Rate 67 05/12/25 09:36 Respiratory Rate 16 05/12/25 09:36 Blood Pressure 114/74 05/12/25 09:36 Pulse Oximetry 100 05/12/25 09:36 reviewed MDM MDM Narrative Medical decision making narrative: Patient sitting in exam room. Patient is nontoxic, vitals are stable. Patient presents with injury 2 days ago to the left hand. X-ray shows fracture to the proximal 3rd metacarpal splint applied patient is appropriate for outpatient treatment with close follow-up Discharge instructions reviewed with patient, as well as provided in writing per nursing staff. The instructions also include specific and strict return/GO TO THE ER as well as f/u information. All questions have been answered, and the patient deny any further questions with discharge and discharge plan. Some parts of this dictation were generated by voice recognition software and may contain typographical and/or grammatical inaccuracies. Differential Diagnosis Differential Diagnosis: Differential diagnostic considerations for upper extremity injury include sprain/strain of wrist, fracture of wrist, finger sprain, dislocation of finger, fracture of hand, tendon injury, carpal tunnel syndrome.? Medical Records I have reviewed the following patient records and this information was taken into consideration when formulating the assessment and plan.: previous clinic visits Imaging Data Radiologist's impression: ITS Impressions Hand X-Ray 05/12/25 09:58 IMPRESSION: 1. Minimally displaced mildly comminuted intra-articular fracture involving the base of the middle finger proximal phalanx. EXAMINATION: XR hand LT min 3V DATE: 05/12/2025 09:54 INDICATION: Injury TECHNIQUE: Left hand x-rays were obtained. COMPARISON: None. FINDINGS: Minimally displaced fracture involving the base of the middle finger proximal phalanx along the ulnar margin at the MCP joint noted; the fragment appears slightly comminuted as well. The fracture extends into the joint space, though only a small portion of the articulating aspect of the proximal phalanx is involved. IMPRESSION: 1. Minimally displaced mildly comminuted intra-articular fracture involving the base of the middle finger proximal phalanx. Discharge Plan Discharge Clinical Impression: Fracture of proximal phalanx of digit of left hand Qualifiers: Encounter type: initial encounter Fracture type: closed Qualified Code(s): S62.619A - Displaced fracture of proximal phalanx of unspecified finger, initial encounter for closed fracture Patient Disposition: Home Condition: Stable Instructions: Antibiotic Form, Finger Fracture (ED), How to Use a Sling (ED), Splint Care (ED) Additional Instructions: rest, ice and elevate every 2-3 hours for 15-20 minutes while awake. Please follow-up with Dr. Baer, call call today for an appointment this week. Alternate Motrin and Tylenol as needed for pain follow-up with primary care provider If you are having a hard time finding a physician please call our [facility] group liaison at [phone]. Patient Language: Pashto Follow-up/Referrals: Erika Baer MD [Physician, Plastic Surgery] - 3 Days Clinical Impression: Fracture of proximal phalanx of digit of left hand UNKNOWN,DOCTOR [Non-Staff] Stand Alone Forms: Work/School Release IP Time of Disposition: 10:18
[2025-05-12 09:36] VITALS: BP 114/74; PULSE 67; RESP 16; TEMP 36.4; O2SAT 100
== END 2025-05-12 10:20 | disposition home or self-care (01) ==
PROVIDERS: Emergency Provider Nurse Practitioner
DX: S62.623A Displaced fracture of middle phalanx of left middle finger, initial encounter for closed fracture (principal); X58.XXXA Exposure to other specified factors, initial encounter
CPT/HCPCS: 29125; 73130; 99214; A4565; G0463